=== PATIENT | male | born 1975 | race Caucasian/White ===

== ENCOUNTER 2020-12-04 21:58 | Emergency (ER) | payer SELFPAY ==
[~2020-12-04] VITALS: Ht 165.1 cm; Wt 68.0 kg
[2020-12-04 22:20] VITALS: BP 156/98
== END 2020-12-04 22:39 | disposition home or self-care (01) ==
LOC: ER 21:58
DX: F10.129 Alcohol abuse with intoxication, unspecified (principal); F17.200 Nicotine dependence, unspecified, uncomplicated; Y90.9 Presence of alcohol in blood, level not specified
CPT/HCPCS: 82962-TC